=== PATIENT | female | born 1960 | race Caucasian/White ===

== ENCOUNTER 2021-04-18 04:31 | Day surgery (SDC) | payer OTHER ==
[2021-04-14 15:35] VITALS: BMI 29.2
[2021-04-18 11:16] VITALS: TEMP 97.6
[2021-04-18 11:45] VITALS: BP 137/68; PULSE 63
== END 2021-04-18 11:47 | disposition home or self-care (01) ==
LOC: JASU-ENDO 04:31
PROVIDERS: ATTEND Internal Medicine Gastroenterology
PROC: 0DJD8ZZ Inspection of Lower Intestinal Tract, Via Natural or Artificial Opening Endoscopic (ICD-10-PCS; principal; 2021-04-18 10:44)
DX: Z12.11 Encounter for screening for malignant neoplasm of colon (principal); Z86.010 Personal history of colon polyps; K63.89 Other specified diseases of intestine; E11.9 Type 2 diabetes mellitus without complications

== ENCOUNTER 2021-04-25 05:03 | Day surgery (SDC) | payer OTHER ==
[2021-04-24 16:09] VITALS: BMI 28.8
[2021-04-25 11:22] VITALS: TEMP 98.6
[2021-04-25 11:34] VITALS: BP 148/76
[2021-04-25 11:52] VITALS: PULSE 67
== END 2021-04-25 12:00 | disposition home or self-care (01) ==
LOC: JASU-ENDO 05:03
PROVIDERS: ATTEND Internal Medicine Gastroenterology
PROC: 0DJ08ZZ Inspection of Upper Intestinal Tract, Via Natural or Artificial Opening Endoscopic (ICD-10-PCS; principal; 2021-04-25)
DX: R10.13 Epigastric pain (principal); R03.0 Elevated blood-pressure reading, without diagnosis of hypertension; R68.83 Chills (without fever); Z53.09 Procedure and treatment not carried out because of other contraindication
CPT/HCPCS: 82962